=== PATIENT | male | born 1995 | race Two or more races ===

== ENCOUNTER 2018-11-24 02:38 | Emergency (ER) | payer BC ==
[2018-11-24] MEDS ORDERED: ONDANSETRON 4 MG/2 ML VIAL ONE (02:52)
[2018-11-24] MEDS ORDERED: ONDANSETRON 4 MG/2 ML VIAL IVP ONE (03:01)
[2018-11-24] MEDS ORDERED: NS 1,000 ML IV ONE ×2 (03:01→03:54)
--- NOTE | 2018-11-24 03:20 | EDPHY ---
H & P Stated Complaint: NAUSE AND VOMITING AFTER EATING SOMETHING. DENIES DIARRHEA Time Seen by Provider: 11/24/18 02:53 HPI/ROS: Chief Complaint: Nausea vomiting HPI: 23-year-old male began having nausea vomiting about 930 last night. He has vomited multiple times. No diarrhea or constipation. He is having some very mild abdominal discomfort. No fevers or chills. No cough. No myalgias. He had only a couple bites about 9:00 a.m.. He was feeling well before that. Before then he said he was eating junk food all day. Does not smoke. Does drink occasional alcohol, last was yesterday. Use marijuana once yesterday ROS: 10 systems were reviewed and were negative except those elements noted in the HPI. PMH: Denies Social History: No smoking, occasional alcohol, this tried marijuana twice Family History: non-contributory Physical Exam: Gen: Awake, Alert, No Distress HEENT: Nose: no rhinorrhea Eyes: PERRLA, EOMI Mouth: Dry mucosa Neck: Supple, no JVD Chest: nontender, lungs clear to auscultation Heart: S1, S2 normal, no murmur Abd: Soft, non-tender, no guarding Back: no CVA tenderness, no midline tenderness Ext: no edema, non-tender Skin: no rash Neuro: CN II-XII intact, Sensation grossly intact, Strength 5/5 in bilateral upper and lower extremities - Personal History Current Tetanus/Diphtheria Vaccine: Yes Current Tetanus Diphtheria and Acellular Pertussis (TDAP): Yes - Medical/Surgical History Hx Asthma: No Hx Chronic Respiratory Disease: No Hx Diabetes: No Hx Cardiac Disease: No Hx Renal Disease: No Hx Cirrhosis: No Hx Alcoholism: No Hx HIV/AIDS: No Hx Splenectomy or Spleen Trauma: No Other PMH: ADD, - Social History Smoking Status: Never smoked Constitutional: Initial Vital Signs Temperature (C) 36.7 C 11/24/18 02:44 Heart Rate 132 H 11/24/18 02:44 Respiratory Rate 18 11/24/18 02:44 Blood Pressure 124/79 H 11/24/18 02:44 O2 Sat (%) 96 11/24/18 02:44 O2 Delivery Mode Room Air Allergies/Adverse Reactions: No Known Allergies Allergy (Unverified 11/24/18 02:46) Home Medications: Medication Instructions Recorded Dextroamphetamine/Amphetamine 20 mg PO BID 11/24/18 [Adderall Xr 20 mg Capsule] Ondansetron Odt [Zofran Odt 4 mg 4 mg PO Q4 PRN #10 tab 11/24/18 (*)] Medical Decision Making ED Course/Re-evaluation: Patient is improved after IV hydration. Tachycardia is resolved. Abdomen is soft and benign. He is tolerating p. O.. Will discharge with follow-up as an outpatient. - Data Points Medications Given: Discontinued Medications Sodium Chloride (Ns) 1,000 mls @ 0 mls/hr IV EDNOW ONE; Wide Open PRN Reason: Protocol Stop: 11/24/18 03:02 Last Admin: 11/24/18 03:02 Dose: 1,000 mls Sodium Chloride (Ns) 1,000 mls @ 0 mls/hr IV EDNOW ONE; Wide Open PRN Reason: Protocol Stop: 11/24/18 03:55 Last Admin: 11/24/18 03:55 Dose: 1,000 mls Ondansetron HCl (Zofran) 4 mg IVP EDNOW ONE Stop: 11/24/18 03:02 Last Admin: 11/24/18 03:02 Dose: 4 mg Departure - Departure Disposition: Home, Routine, Self-Care Clinical Impression: Acute gastroenteritis Condition: Good Instructions: Gastroenteritis (ED), Dehydration (ED), Ondansetron (By mouth) Additional Instructions: You may take ondansetron every 8 hr as needed for nausea or vomiting. Make sure to drink plenty of fluids. Pedialyte is the best fluid to drink if you're dehydrated. Follow up with primary care physician in 3-4 days if symptoms are not improving. Return to the emergency department for worsening abdominal pain, uncontrolled nausea vomiting, fevers, chills, or any other concerns. Referrals: NONE *PRIMARY CARE P,. [Primary Care Provider] - As per Instructions Prescriptions: Ondansetron Odt [Zofran Odt 4 mg (*)] 4 mg PO Q4 PRN #10 tab PRN Reason: nausea
[2018-11-24 06:12] VITALS: BP 142/78
== END 2018-11-24 06:15 | disposition home or self-care (01) ==
DX: K52.9 Noninfective gastroenteritis and colitis, unspecified (principal); E86.9 Volume depletion, unspecified
CPT/HCPCS: 96374; J2405